=== PATIENT | male | born 1970 | race Hispanic/Latino ===

== ENCOUNTER 2019-11-05 06:48 | Emergency (ER) | payer OTHER ==
[2019-11-05] MEDS ORDERED: ASPIRIN EC 81 MG TAB PO ONE (07:25)
[2019-11-05 07:37] LABS: Absolute Lymphocytes (CBC) 1.6 K/uL (0.7-4.9); Basophils % 0.4 % (0-1.3); Hematocrit 42.2 % (39.6-49.0); MPV 7.4 fL (7.6-11.3); Protime INR 1.06; RBC Red Blood Cell Count 5.19 M/uL (4.33-5.43)
[2019-11-05 07:58] LABS: ALT/SGPT 44 U/L (12-78); AST/SGOT 25 U/L (15-37); Albumin 3.7 g/dL (3.4-5.0); Alkaline Phosphatase 64 U/L (45-117); BUN Blood Urea Nitrogen 16 mg/dL (7-18); Bicarbonate 27 mmol/L (21-32); Bilirubin Direct 0.2 mg/dL (0-0.2); Bilirubin Total 0.6 mg/dL (0.2-1.0); Glucose Level 101 mg/dL (74-106); Magnesium 2.2 mg/dL (1.8-2.4); NT PRO-BNP 18 pg/mL (<125); Potassium 3.9 mmol/L (3.5-5.1); Protein, Total 7.3 g/dL (6.4-8.2); Sodium Level 139 mmol/L (136-145); Troponin (Emerg Dept Use Only) < 0.02 ng/mL (0.0-0.045)
--- NOTE | 2019-11-05 08:39 | RAD REPORT ---
EXAM DESCRIPTION: RAD - Chest Single View - 11/05/2019 7:33 am CLINICAL HISTORY: lightheaded Chest pain. COMPARISON: No comparisons FINDINGS: Portable technique limits examination quality. The lungs are grossly clear. The heart is normal in size. No displaced fractures. IMPRESSION: No acute intrathoracic process suspected.
[2019-11-05] MEDS ORDERED: LABETALOL HCL 100 MG TAB ONE (09:39)
--- NOTE | 2019-11-05 10:06 | EDPHYS ---
Physician Documentation [facility] Name: Bhupendra Polo Age: 49 yrs Sex: Male : 1970 Arrival Date: 11/05/2019 Time: 06:51 Bed 17 Private MD: ED Physician Matthew Krishna HPI: 11/04 08:47 This 49 yrs old Male presents to ER via Ambulatory with complaints of High snw Blood Pressure, Numbness Of Arm. 08:47 The patient has elevated blood pressure and discovered this at home. Onset: The snw symptoms/episode began/occurred 1 month(s) ago. Modifying factors: The symptoms are alleviated by comes and goes. Associated signs and symptoms: Pertinent positives: right arm paresthesias, Pertinent negatives: chest pain, dizziness, lightheadedness. Severity of symptoms: At its worst the blood pressure was 180 mm Hg. It is unknown whether or not the patient has had similar symptoms in the past. recent vasectomy, told at that time he was "a little hypertensive". Historical: - Allergies: 07:11 No Known Allergies; bb - Home Meds: 07:11 None [Active]; bb - PMHx: 07:11 None; bb - PSHx: 07:11 Vasectomy; bb - Immunization history:: Adult Immunizations up to date. - Social history:: Smoking status: Patient denies any tobacco usage or history of. Patient/guardian denies using alcohol, street drugs. ROS: 08:46 Constitutional: Negative for fever, chills, and weight loss, Eyes: Negative for injury, snw pain, redness, and discharge, ENT: Negative for injury, pain, and discharge, Neck: Negative for injury, pain, and swelling, Cardiovascular: Negative for chest pain, palpitations, and edema, Respiratory: Negative for shortness of breath, cough, wheezing, and pleuritic chest pain, Abdomen/GI: Negative for abdominal pain, nausea, vomiting, diarrhea, and constipation, Back: Negative for injury and pain, : Negative for injury, bleeding, discharge, and swelling, MS/Extremity: Negative for injury and deformity, Skin: Negative for injury, rash, and discoloration, Psych: Negative for depression, anxiety, suicide ideation, homicidal ideation, and hallucinations. 08:46 Neuro: Positive for occasional paresthesias to right arm. Exam: 08:46 Constitutional: This is a well developed, well nourished patient who is awake, alert, snw and in no acute distress. 08:46 Head/Face: Normocephalic, atraumatic. Eyes: Pupils equal round and reactive to light, extra-ocular motions intact. Lids and lashes normal. Conjunctiva and sclera are non-icteric and not injected. Cornea within normal limits. Periorbital areas with no swelling, redness, or edema. ENT: Nares patent. No nasal discharge, no septal abnormalities noted. Tympanic membranes are normal and external auditory canals are clear. Oropharynx with no redness, swelling, or masses, exudates, or evidence of obstruction, uvula midline. Mucous membranes moist. Neck: Trachea midline, no thyromegaly or masses palpated, and no cervical lymphadenopathy. Supple, full range of motion without nuchal rigidity, or vertebral point tenderness. No Meningismus. Chest/axilla: Normal chest wall appearance and motion. Nontender with no deformity. No lesions are appreciated. Cardiovascular: Regular rate and rhythm with a normal S1 and S2. No gallops, murmurs, or rubs. Normal PMI, no JVD. No pulse deficits. Respiratory: Lungs have equal breath sounds bilaterally, clear to auscultation and percussion. No rales, rhonchi or wheezes noted. No increased work of breathing, no retractions or nasal flaring. Abdomen/GI: Soft, non-tender, with normal bowel sounds. No distension or tympany. No guarding or rebound. No evidence of tenderness throughout. Back: No spinal tenderness. No costovertebral tenderness. Full range of motion. Skin: Warm, dry with normal turgor. Normal color with no rashes, no lesions, and no evidence of cellulitis. MS/ Extremity: Pulses equal, no cyanosis. Neurovascular intact. Full, normal range of motion. Neuro: Awake and alert, GCS 15, oriented to person, place, time, and situation. Cranial nerves II-XII grossly intact. Motor strength 5/5 in all extremities. Sensory grossly intact. Cerebellar exam normal. Normal gait. Psych: Awake, alert, with orientation to person, place and time. Behavior, mood, and affect are within normal limits. Vital Signs: 07:05 BP 152 / 101; Pulse 73; Resp 16 S; Temp 97.9(O); Pulse Ox 100% on R/A; Weight 94.8 kg bb (M); Height 5 ft. 8 in. (172.72 cm) (R); Pain 0/10; 08:15 BP 152 / 95; Pulse 76; Resp 14; Pulse Ox 100% ; bp 09:15 BP 152 / 85; Pulse 79; Resp 13; Pulse Ox 100% ; bp 10:31 BP 138 / 87; Pulse 77; Resp 17; Temp 98; Pulse Ox 100% ; bp 07:05 Body Mass Index 31.78 (94.80 kg, 172.72 cm) bb MDM: 06:57 Patient medically screened. snw 08:49 Data reviewed: vital signs, nurses notes, lab test result(s), EKG, radiologic studies. snw Data interpreted: Pulse oximetry: on room air is 100 %. Interpretation: normal. Counseling: I had a detailed discussion with the patient and/or guardian regarding: the historical points, exam findings, and any diagnostic results supporting the discharge/admit diagnosis, the presence of at least one elevated blood pressure reading (>120/80) during this emergency department visit, the need for outpatient follow up, for definitive care, to return to the emergency department if symptoms worsen or persist or if there are any questions or concerns that arise at home. Special discussion: I have referred the patient to see his PCP for further evaluation of high blood pressure. Based on the history and exam findings, there is no indication for further emergent testing or inpatient evaluation. I discussed with the patient/guardian the need to see the primary care provider for further evaluation of the symptoms. 10:03 Response to treatment: the patient's symptoms have markedly improved after treatment, snw 138/87. 11/04 07:03 Order name: Basic Metabolic Panel; Complete Time: 07:58 snw 11/04 07:03 Order name: CBC with Diff; Complete Time: 07:58 snw 11/04 07:03 Order name: LFT's; Complete Time: 07:58 snw 11/04 07:03 Order name: Magnesium; Complete Time: 07:59 snw 11/04 07:03 Order name: NT PRO-BNP; Complete Time: 07:59 snw 11/04 07:03 Order name: PT-INR; Complete Time: 07:58 snw 11/04 07:03 Order name: Troponin (emerg Dept Use Only); Complete Time: 07:58 snw 11/04 07:03 Order name: XRAY Chest (1 view); Complete Time: 08:43 snw 11/04 07:03 Order name: EKG; Complete Time: 07:04 snw 11/04 07:03 Order name: Cardiac monitoring; Complete Time: 07:10 snw 11/04 07:03 Order name: EKG - Nurse/Tech; Complete Time: 07:31 snw 11/04 07:03 Order name: IV Saline Lock; Complete Time: 07:31 snw 11/04 07:03 Order name: Labs collected and sent; Complete Time: 07:31 snw 11/04 07:03 Order name: O2 Per Protocol; Complete Time: 07:10 snw 11/04 07:03 Order name: O2 Sat Monitoring; Complete Time: 07:10 snw 11/04 08:50 Order name: Recheck B/P; Complete Time: 09:24 snw Administered Medications: 07:15 Drug: Aspirin Chewable Tablet 324 mg Route: PO; bp 09:24 Follow up: Response: No adverse reaction bp 09:30 Drug: Labetalol 100 mg Route: PO; bp 10:32 Follow up: Response: No adverse reaction bp Disposition: 19:37 Co-signature as Attending Physician, Matthew Krishna MD. [email or web address] Disposition: 11/05/19 10:05 Discharged to Home. Impression: Essential (primary) hypertension. - Condition is Stable. - Discharge Instructions: Hypertension, How to Take Your Blood Pressure, Kcew-wt-[id number], DASH Eating Plan, Rehydration, Adult, Managing Your Hypertension. - Prescriptions for TRANDATE - take 100 milligram by ORAL route 2 times per day; 60 tablet. - Work release form, Medication Reconciliation Form, Thank You Letter, Antibiotic Education, Prescription Opioid Use form. - Follow up: Emergency Department; When: As needed; Reason: Worsening of condition. Follow up: Private Physician; When: 2 - 3 days; Reason: Recheck today's complaints, Continuance of care, Re-evaluation by your physician. Signatures: Dispatcher [facility] Kera Brand, MERT-C REGULATORY AFFAIRS COORDINATOR-[employer] Cary Dozier, RN RN Timmy Olivas, RN RN bp Matthew Krishna MD MD [email or web address] Corrections: (The following items were deleted from the chart) 10:05 10:05 11/05/2019 10:05 Discharged to Home. Impression: Essential (primary) snw hypertension. Condition is Fair. Forms are Medication Reconciliation Form, Thank You Letter, Antibiotic Education, Prescription Opioid Use. Follow up: Emergency Department; When: As needed; Reason: Worsening of condition. Follow up: Private Physician; When: 2 - 3 days; Reason: Recheck today's complaints, Continuance of care, Re-evaluation by your physician. snw 10:33 10:05 11/05/2019 10:05 Discharged to Home. Impression: Essential (primary) bp hypertension. Condition is Stable. Forms are Medication Reconciliation Form, Thank You Letter, Antibiotic Education, Prescription Opioid Use. Follow up: Emergency Department; When: As needed; Reason: Worsening of condition. Follow up: Private Physician; When: 2 - 3 days; Reason: Recheck today's complaints, Continuance of care, Re-evaluation by your physician. snw
--- NOTE | 2019-11-05 10:06 | ER ---
Nurse's Notes [facility] Name: Bhupendra Polo Age: 49 yrs Sex: Male : 1970 Arrival Date: 11/05/2019 Time: 06:51 Bed 17 Private MD: Diagnosis: Essential (primary) hypertension Presentation: 11/04 07:05 Chief complaint: Patient states: he noticed he had high blood pressure about 3 weeks bb ago during a doctor's visit in [place] it was 155/80, he also felt light-headed yesterday but feels okay today, he also has noticed some intermittent numbness to his right arm for the last month denies cough, fever, SOB. Coronavirus screen: At this time, the client does not indicate any symptoms associated with coronavirus-19. Ebola Screen: No symptoms or risks identified at this time. Initial Sepsis Screen: Does the patient meet any 2 criteria? No. Patient's initial sepsis screen is negative. Does the patient have a suspected source of infection? No. Patient's initial sepsis screen is negative. Risk Assessment: Do you want to hurt yourself or someone else? Patient reports no desire to harm self or others. Onset of symptoms was September 2019. 07:05 Method Of Arrival: Ambulatory bb 07:05 Acuity: SHALA 3 bb Triage Assessment: 07:15 General: Appears in no apparent distress. comfortable, Behavior is cooperative, bp appropriate for age, anxious. Pain: Complains of pain in chest. EENT: No deficits noted. Neuro: No deficits noted. Cardiovascular: Rhythm is sinus rhythm. Respiratory: No deficits noted. GI: No signs and/or symptoms were reported involving the gastrointestinal system. : No deficits noted. Derm: No deficits noted. Skin is intact, is healthy with good turgor, Skin is dry, Skin temperature is warm. Musculoskeletal: No deficits noted. Historical: - Allergies: 07:11 No Known Allergies; bb - Home Meds: 07:11 None [Active]; bb - PMHx: 07:11 None; bb - PSHx: 07:11 Vasectomy; bb - Immunization history:: Adult Immunizations up to date. - Social history:: Smoking status: Patient denies any tobacco usage or history of. Patient/guardian denies using alcohol, street drugs. Screenin:30 Abuse screen: Denies threats or abuse. Denies injuries from another. Nutritional bp screening: No deficits noted. 07:30 Tuberculosis screening: No symptoms or risk factors identified. Fall Risk None bp identified. Assessment: 07:15 General: SEE TRIAGE NOTE. bp 09:15 Reassessment: NO ACUTE S/S AT THIS TIME. VS STABLE ON MONITOR. bp 10:31 Reassessment: PT D/C HOME AMBULATORY, DX WITH ESSENTIAL HTN. bp Vital Signs: 07:05 BP 152 / 101; Pulse 73; Resp 16 S; Temp 97.9(O); Pulse Ox 100% on R/A; Weight 94.8 kg bb (M); Height 5 ft. 8 in. (172.72 cm) (R); Pain 0/10; 08:15 BP 152 / 95; Pulse 76; Resp 14; Pulse Ox 100% ; bp 09:15 BP 152 / 85; Pulse 79; Resp 13; Pulse Ox 100% ; bp 10:31 BP 138 / 87; Pulse 77; Resp 17; Temp 98; Pulse Ox 100% ; bp 07:05 Body Mass Index 31.78 (94.80 kg, 172.72 cm) bb ED Course: 06:51 Patient arrived in ED. bp1 06:56 Kera James FNP-C is [facility]. snw 06:56 Matthew Krishna MD is Attending Physician. snw 07:00 Timmy Araiza, JUAN JOSE is Primary Nurse. bp 07:11 Triage completed. bb 07:11 Arm band placed on Patient placed in an exam room, on a stretcher, on pulse oximetry. bb 07:25 Inserted saline lock: 20 gauge in right forearm, using aseptic technique. Blood bp collected. 07:30 Patient has correct armband on for positive identification. Bed in low position. Call bp light in reach. Side rails up X2. motorcycle maker on. Pulse ox on. NIBP on. 07:34 XRAY Chest (1 view) In Process Unspecified. EDMS 10:31 No provider procedures requiring assistance completed. IV discontinued, intact, bp bleeding controlled, No redness/swelling at site. Pressure dressing applied. Administered Medications: 07:15 Drug: Aspirin Chewable Tablet 324 mg Route: PO; bp 09:24 Follow up: Response: No adverse reaction bp 09:30 Drug: Labetalol 100 mg Route: PO; bp 10:32 Follow up: Response: No adverse reaction bp Outcome: 10:05 Discharge ordered by . jeremy 10:31 Discharged to home ambulatory. bp 10:31 Condition: stable 10:31 Discharge instructions given to patient, Instructed on discharge instructions, follow up and referral plans. medication usage, Demonstrated understanding of instructions, follow-up care, medications, Prescriptions given X 1. 10:33 Patient left the ED. bp Signatures: Dispatcher [employer] EDMS Kera James, MERT-C [employer] OPTICAL [employer] WORKER-[employer] Cary Dozier, RN RN bb Timmy Ariaza RN RN bp Ophelia Hodges bp1
[2019-11-05 10:51] VITALS: O2SAT 100
[2019-11-05 10:54] VITALS: BP 138/87; TEMP 98
== END 2019-11-05 10:33 | disposition home or self-care (01) ==
LOC: ER 06:48
DX: I10 Essential (primary) hypertension (principal)
CPT/HCPCS: 36415; 71045; 80048; 80076; 83735; 83880; 84484; 85025; 85610; 93005; 99284